=== PATIENT | female | born 1975 | race Caucasian/White ===

== ENCOUNTER → 2018-07-13 | Outpatient (CLI) | payer BC ==
--- NOTE | 2018-07-14 09:31 | MM ---
Reason for exam: screening (asymptomatic). Last mammogram was performed 2 years and 4 months ago. History: Family history of breast cancer in maternal grandmother at age 50. Physical Findings: A clinical breast exam by your physician is recommended on an annual basis and results should be correlated with mammographic findings. MG 3D Screening Mammo W/Cad Bilateral CC and MLO view(s) were taken. Prior study comparison: March 11, 2016, bilateral MG screening mammo w CAD. The breast tissue is extremely dense which could obscure a lesion on mammography. No significant changes when compared with prior studies. ASSESSMENT: Benign, BI-RAD 2 RECOMMENDATION: Routine screening mammogram of both breasts in 1 year.
== END | disposition home or self-care (01) ==
LOC: RADMAMWWP 07:04
PROVIDERS: ATTEND Physician Assistant Medical
DX: Z12.31 Encounter for screening mammogram for malignant neoplasm of breast (principal); Z80.3 Family history of malignant neoplasm of breast
CPT/HCPCS: 77063; 77067

== ENCOUNTER → 2019-10-21 | Outpatient (CLI) | payer BC ==
--- NOTE | 2019-10-22 15:06 | MM ---
Reason for exam: screening (asymptomatic). Last mammogram was performed 1 year and 3 months ago. History: Family history of breast cancer in maternal grandmother at age 50. Physical Findings: A clinical breast exam by your physician is recommended on an annual basis and results should be correlated with mammographic findings. MG 3D Screening Mammo W/Cad Bilateral CC and MLO view(s) were taken. Prior study comparison: July 13, 2018, bilateral MG 3d screening mammo w/cad. March 11, 2016, bilateral MG screening mammo w CAD. The breast tissue is heterogeneously dense. This may lower the sensitivity of mammography. No significant changes when compared with prior studies. ASSESSMENT: Benign, BI-RAD 2 RECOMMENDATION: Routine screening mammogram of both breasts in 1 year.
== END | disposition home or self-care (01) ==
LOC: RADMAMWWP 09:35
PROVIDERS: ATTEND Family Medicine
DX: Z12.31 Encounter for screening mammogram for malignant neoplasm of breast (principal); Z80.3 Family history of malignant neoplasm of breast
CPT/HCPCS: 77063; 77067

== ENCOUNTER → 2020-12-18 | Outpatient (CLI) | payer BC ==
--- NOTE | 2020-12-20 08:50 | MM ---
Reason for exam: screening (asymptomatic). Last mammogram was performed 1 year and 2 months ago. History: Family history of breast cancer in maternal grandmother at age 50. Physical Findings: A clinical breast exam by your physician is recommended on an annual basis and results should be correlated with mammographic findings. MG Screening Mammo w CAD Bilateral CC and MLO view(s) were taken. Prior study comparison: October 21, 2019, bilateral MG 3d screening mammo w/cad. July 13, 2018, bilateral MG 3d screening mammo w/cad. March 11, 2016, bilateral MG screening mammo w CAD. The breast tissue is extremely dense which could obscure a lesion on mammography. Lateral left microcalcifications appear increased. Lateral central right MLO asymmetric density appears more defined. ASSESSMENT: Incomplete: need additional imaging evaluation, BI-RAD 0 RECOMMENDATION: Special view mammogram of both breasts. (right spot views, left magnification views) If lesion persists on supplemental views, image directed ultrasound is recommended. [facility] will attempt to contact patient to return for supplemental views and ultrasound if indicated.
== END | disposition home or self-care (01) ==
LOC: RADMAMWWP 14:57
PROVIDERS: ATTEND Family Medicine
DX: Z12.31 Encounter for screening mammogram for malignant neoplasm of breast (principal); Z80.3 Family history of malignant neoplasm of breast
CPT/HCPCS: 77067

== ENCOUNTER → 2020-12-22 | Outpatient (CLI) | payer BC ==
--- NOTE | 2020-12-25 12:24 | MM ---
Reason for exam: additional evaluation requested from abnormal screening. Last mammogram was performed less than 1 month ago. History: Family history of breast cancer in maternal grandmother at age 50. Physical Findings: Nurse did not find any significant physical abnormalities on exam. MG Work Up Mamm w CAD BILAT MLO and LM view(s) were taken of the right breast. CC with magnification, ML with magnification, XCCM, and ML view(s) were taken of the left breast. Prior study comparison: December 18, 2020, bilateral MG screening mammo w CAD. October 21, 2019, bilateral MG 3d screening mammo w/cad. The breast tissue is heterogeneously dense. This may lower the sensitivity of mammography. Finding: There are intermediate concern, suspicious grouped/clustered, fine calcifications in the upper outer quadrant of the left breast 3cm from the nipple. There is no discrete abnormality including area of concern in the right breast. New finding since December 18, 2020 and October 21, 2019. These results were verbally communicated with the patient and result sheet given to the patient on 12/22/20. ASSESSMENT: Suspicious, BI-RAD 4 RECOMMENDATION: Stereotactic core biopsy of the left breast. (calcifications) Called Dr. Ceron's office with mammographic findings and has scheduled an appointment for the patient for 01/25/21 at 1:[address] Monroe. Biopsy scheduled for 01/26/21 at 8:00. PRELIMINARY REPORT CALLED AND FAXED TO DR. MONROE ON 12/25/20.
== END | disposition home or self-care (01) ==
LOC: RADMAMWWP 08:55
PROVIDERS: ATTEND Family Medicine
DX: R92.8 Other abnormal and inconclusive findings on diagnostic imaging of breast (principal); Z80.3 Family history of malignant neoplasm of breast
CPT/HCPCS: 77066

== ENCOUNTER → 2021-01-25 | Outpatient (CLI) | payer BC ==
[2021-01-25 13:12] VITALS: BP 132/75; PULSE 70; RESP 18; TEMP 98.2
--- NOTE | 2021-01-25 13:27 | P.GSHP ---
History of Present Illness H&P Date: 01/25/21 Chief Complaint: abnormal left breast mammogram Rina is a 45 year old white female seen in consultation for Dr. Ceron regarding a mammograpic abnormality in the left breast. Patient does not feel anything of concern in her breast. [place] [address]. Additional views were recommended of both breasts. [place] [id number]. No discrete abnormality was noted in the right breast however in the left breast intermediate concern suspicious group clustered fine calcifications in the upper quadrant were noted. She is not complaining of any nipple discharge or skin changes. She does not feel any lumps masses or nodules in other breast. She has not had any surgery on either breast. caffeine: 5 cups/day nicotine: none stopped at 25, used to smoke 1 pack every other day started at 18 chocolate: occasional Family History: maternal grandmother: of breast cancer father: lung cancer/smoker Hormonal History: menarche: 11 breast fed: yes, age at first : 25 periods irregular and heavy hormones: none BCP: used 8 years stopped at 23 Surgical history: laperoscopy for to valuate for endometriosis Medical history: none Social history: Nicotine: Negative, former smoker stopped approximately 20 years ago Alcohol: 3 days/week wine drugs: Marijuana / weekends - Constitutional Constitutional: Reports sweats - EENT Eyes: bilateral blurred vision, denies pain Ears: bilateral: decreased hearing (follows with ENT), deny: tinnitus Ears, nose, mouth and throat: Denies headache, Denies sore throat - Breasts Breasts: bilateral: as per HPI - Cardiovascular Cardiovascular: Denies chest pain, Denies shortness of breath - Respiratory Comment: former smoker Respiratory: Denies cough, Denies 7 - Gastrointestinal Gastrointestinal: Denies abdominal pain, Denies diarrhea, Denies nausea, Denies vomiting - Genitourinary (Female) Genitourinary: Denies dysuria, Denies hematuria - Menstruation Menstruation: Reports cycle variable - Musculoskeletal Musculoskeletal: Denies myalgias - Integumentary Integumentary: Denies pruritus, Denies rash - Neurological Neurological: Denies numbness, Denies weakness - Psychiatric Psychiatric: Reports anxiety, Denies depression - Endocrine Endocrine: Reports fatigue, Denies weight change - Hematologic/Lymphatic Comment: none - Allergic/Immunologic Allergic/Immunologic: Reports as per HPI, Reports seasonal allergies Medications and Allergies Home Medications Medication Instructions Recorded Confirmed Type ALPRAZolam [Xanax] 0.5 mg PO HS PRN 01/15/21 01/15/21 History Allergies Allergy/AdvReac Type Severity Reaction Status Date / Time sulfamethoxazole AdvReac Intermediate Vomiting Verified 01/15/21 12:29 [From Bactrim] trimethoprim [From Bactrim] AdvReac Intermediate Vomiting Verified 01/15/21 12:29 Surgical - Exam BMI 20.5 - General no distress - Eyes normal ocular movement - ENT normal nares - Neck trachea midline - Respiratory normal respiratory effort, clear to auscultation - Cardiovascular Rhythm: regular Heart Sounds: normal: S1, S2 - Abdomen Abdomen: soft - Integumentary normal turgor - Neurologic no disoriented, no combative - Musculoskeletal normal gait - Psychiatric oriented to time, oriented to person, oriented to place, speech is normal, memory intact Breast Exam: BRA: 32B inspection: Bilateral grade 1/2 ptosis Palpation: Right breast: Fibrocystic breast changes/dense breasts no dominant masses or nodules of concern Right axilla: Shoddy adenopathy Left breast: His multiple positional exam fibrocystic changes dense fibroglandular tissue no dominant masses or nodules of concern Left axilla: Shoddy adenopathy Results Mammogram reviewed with Dr. Vaughn Assessment and Plan Assessment: Impression: 1. Fibrocystic breast changes 2. Family history of breast cancer 3. Mammographic abnormality left breast Plan: 1. Attempted stereo biopsy left breast, the patient's breast are small and the microcalcifications are somewhat difficult to say Risks and benefits of the procedure discussed with the patient. Risks include but are not limited to bleeding, infection, reaction to the anesthetic. If the area of concern is not well visualized tomorrow we may recommend needle localization and excision in the operating room. CC: Dr. Ceron
== END ==
LOC: WWCWWP 12:58
PROVIDERS: ATTEND Surgery
DX: N60.12 Diffuse cystic mastopathy of left breast (principal); Z80.3 Family history of malignant neoplasm of breast; Z87.891 Personal history of nicotine dependence; Z88.2 Allergy status to sulfonamides

== ENCOUNTER → 2021-01-26 | Day surgery (SDC) | payer BC ==
[2021-01-26 07:36] VITALS: RESP 18
[2021-01-26 09:30] VITALS: BP 130/77; PULSE 60; TEMP 97.7
--- NOTE | 2021-01-26 09:59 | P.PCN ---
Date of Procedure: 01/26/21 Preoperative Diagnosis: Microcalcifications of concern right breast Postoperative Diagnosis: Same Procedure(s) Performed: right Breast stereotactic core biopsy Anesthesia: local Surgeon: Amy Monroe Pathology: other (Breast tissue/several small microcalcifications felt to be present in biopsy specimen) Condition: stable Disposition: same day Indications for Procedure: Suspicious group/clustered fine calcifications upper outer quadrant left breast Operative Findings: Radiographic specimen reveals few scattered calcifications Description of Procedure: The patient is a 45-year-old white female who was noted to have microcalcifications of concern in the right breast in the upper quadrant region. She has small breast, the microcalcifications are very fine and she has very dense breast making it difficult to see. The radiographs were reviewed with radiology and it was felt that we would attempt a CC from above approach to do stereotactic core biopsy. Secondary to the nature of the calcifications and the size of the breast I discussed with the patient that we may not be technically able to accomplish the biopsy. Alternatives would be watchful waiting or going to the operating room however at this time she wished an attempt at stereotactic core biopsy. The patient was taken to stereotactic core biopsy room. She was positioned on the low rad table. A CC from above approach was utilized. A industrial hygenist film was obtained. The industrial hygenist film revealed some very fine calcifications. These appeared to be consistent with those seen mammographically and felt to be suspicious. The calcifications were targeted. The breast was prepped using a Betadine prep. 20 mL of 1% lidocaine were used to anesthetize the area of concern. A petite needle 9-gauge vacuum-assisted core rotating biopsy needle was introduced into the area of concern. Prefire film was obtained. The needle was fired and a post-fire film was obtained. Multiple core biopsies were obtained. Radiograph of the specimen revealed what appeared to be some faint scattered calcifications. The secure valentin top mechatronics technologist was placed. Postprocedure mammogram was performed to determine clip placement. There was concern that although it was believed calcifications had been sampled the most suspicious calcifications had not been adequately sampled. This was reviewed with Dr. Lino from radiology. We will await pathology results. We will most likely recommend repeat sampling.
--- NOTE | 2021-01-26 11:14 | MM ---
Description of Procedure: The patient is a 45-year-old white female who was noted to have microcalcifications of concern in the right breast in the upper quadrant region. She has small breast, the microcalcifications are very fine and she has very dense breast making it difficult to see. The radiographs were reviewed with radiology and it was felt that we would attempt a CC from above approach to do stereotactic core biopsy. Secondary to the nature of the calcifications and the size of the breast I discussed with the patient that we may not be technically able to accomplish the biopsy. Alternatives would be watchful waiting or going to the operating room however at this time she wished an attempt at stereotactic core biopsy. The patient was taken to stereotactic core biopsy room. She was positioned on the low rad table. A CC from above approach was utilized. A retail support manager film was obtained. The retail support manager film revealed some very fine calcifications. These appeared to be consistent with those seen mammographically and felt to be suspicious. The calcifications were targeted. The breast was prepped using a Betadine prep. 20 mL of 1% lidocaine were used to anesthetize the area of concern. A petite needle 9-gauge vacuum-assisted core rotating biopsy needle was introduced into the area of concern. Prefire film was obtained. The needle was fired and a post-fire film was obtained. Multiple core biopsies were obtained. Radiograph of the specimen revealed what appeared to be some faint scattered calcifications. The secure valentin top hat and cap opener was placed. Postprocedure mammogram was performed to determine clip placement. There was concern that although it was believed calcifications had been sampled the most suspicious calcifications had not been adequately sampled. This was reviewed with Dr. Lino from radiology. We will await pathology results. We will most likely recommend repeat sampling. [facility] HOSPITALValeriy
== END ==
LOC: RADMAMWWP 07:08
PROVIDERS: ATTEND Surgery
DX: N60.12 Diffuse cystic mastopathy of left breast (principal); N60.82 Other benign mammary dysplasias of left breast; R92.8 Other abnormal and inconclusive findings on diagnostic imaging of breast; Z88.2 Allergy status to sulfonamides
CPT/HCPCS: 88305; 19081; J2001

== ENCOUNTER → 2021-02-02 | Outpatient (CLI) | payer BC ==
--- NOTE | 2021-02-02 14:04 | P.PN ---
Subjective Progress Note Date: 02/02/21 Principal diagnosis: Abnormal left breast mammogram Patient is a 45-year-old white female status post attempted stereotactic core biopsy of an area of microcalcification in the left breast on . Pathology was benign fibrocystic change. No calcifications were seen in the pathology specimen. The lesion of concern appears to be slightly posterior to the location of the localizing clip. The patient did develop some ecchymosis and discomfort following the procedure. Her breast size is A. Objective - Vital Signs Vital signs: Intake & Output 02/01/21 02/02/21 02/02/21 18:59 06:59 18:59 Weight 58.967 kg - Additional findings Additional findings: Left breast biopsy; ecchymosis resolving no evidence of infection, no evidence of hematoma Assessment and Plan Assessment: Impression: Attempted stereotactic core biopsy area of calcification in the left breast/the most suspicious calcifications are not felt to have been adequately sampled Plan: We have talked about several options these would include 1. Repeat attempted stereo biopsy 2. Stereo biopsy with 3-D equipment 3. Needle localization and excisional biopsy 4. Watchful waiting After discussion the best course of action seems to be stereo biopsy with 3-D equipment the understanding that if this is not possible then needle localizatio n and excision in the OR most likely be recommended. CC: Dr. Ceron
[2021-02-02 14:06] VITALS: BP 143/88; PULSE 82; RESP 16; TEMP 98
== END ==
LOC: WWCWWP 12:58
PROVIDERS: ATTEND Surgery
DX: R92.1 Mammographic calcification found on diagnostic imaging of breast (principal); Z88.1 Allergy status to other antibiotic agents; Z88.2 Allergy status to sulfonamides

== ENCOUNTER → 2021-05-28 | Outpatient (CLI) | payer BC ==
--- NOTE | 2021-05-28 14:51 | MM ---
Reason for exam: follow-up at short interval from prior study. Last mammogram was performed 5 months ago. History: Family history of breast cancer in maternal grandmother at age 50. Benign MG stereo VAD BX LT of the left breast, January 26, 2021. Physical Findings: A clinical breast exam by your physician is recommended on an annual basis and results should be correlated with mammographic findings. MG 3D Diag Mammo W/Cad LT CC and MLO view(s) were taken of the left breast. Prior study comparison: December 22, 2020, bilateral MG work up mamm w CAD BILAT. December 18, 2020, bilateral MG screening mammo w CAD. There are scattered fibroglandular densities. Finding: There are typically benign diffuse/scattered calcifications in the left breast. No significant changes in finding since December 22, 2020 and December 18, 2020. These results were verbally communicated with the patient and result sheet given to the patient on 05/28/21. ASSESSMENT: Benign, BI-RAD 2 RECOMMENDATION: Return to routine screening mammogram schedule for both breasts. Back on schedule.
== END | disposition home or self-care (01) ==
LOC: RADMAMWWP 13:43
PROVIDERS: ATTEND Surgery
DX: R92.1 Mammographic calcification found on diagnostic imaging of breast (principal); N64.89 Other specified disorders of breast; Z80.3 Family history of malignant neoplasm of breast
CPT/HCPCS: 77061; 77065

== ENCOUNTER → 2021-06-15 | Outpatient (CLI) | payer BC ==
[2021-06-15 11:25] VITALS: BP 128/88; PULSE 61; RESP 17; TEMP 98.3
--- NOTE | 2021-06-15 12:20 | P.PN ---
Subjective Progress Note Date: 06/15/21 Principal diagnosis: Fibrocystic breast changes Rina is a 45 year old white female seen in consultation for Dr. Ceron regarding a mammograpic abnormality in the left breast. Patient does not feel anything of concern in her breast. [place] [address]. Additional views were recommended of both breasts. [place] [address]. No discrete abnormality was noted in the right breast however in the left breast intermediate concern suspicious group clustered fine calcifications in the upper quadrant were noted. She is not complaining of any nipple discharge or skin changes. She does not feel any lumps masses or nodules in other breast. She had an attempt at a left breast serotactic core biopsy performed on . There was some question there may be some calcifications in the specimen and pathology was awaited. Pathology returned as fibrocystic changes but no calcifications were noted in the specimen. At that time we considered repeating the biopsy versus watchful waiting. After discussion with radiology and the patient the patient decided on the watchful waiting. A repeat mammogram of the left breast was performed on 3721. This was felt to have benign diffuse/scattered calcifications in the left breast. No significant changes since 12/18/2020. The recommendation was for repeat bilateral mammogram in December 2021 on schedule. The patient has not noted any new lumps masses or nodules of concern in either breast. Again had a discussion with the patient that I cannot promise that the initial calcifications were adequately sampled however everything appears stable and the patient has declined further interventional biopsy at this time. caffeine: 5 cups/day nicotine: none stopped at 25, used to smoke 1 pack every other day started at 18 chocolate: occasional Family History: maternal grandmother: of breast cancer father: lung cancer/smoker Hormonal History: menarche: 11 breast fed: yes, age at first : 25 periods irregular and heavy hormones: none BCP: used 8 years stopped at 23 Surgical history: laperoscopy for to evaluate for endometriosis Medical history: none Social history: Nicotine: Negative, former smoker stopped approximately 20 years ago Alcohol: 3 days/week wine drugs: Marijuana / weekends - Constitutional Constitutional: Reports sweats - EENT Eyes: bilateral blurred vision, denies pain Ears: bilateral: decreased hearing (follows with ENT), deny: tinnitus Ears, nose, mouth and throat: Denies headache, Denies sore throat - Breasts Breasts: bilateral: as per HPI - Cardiovascular Cardiovascular: Denies chest pain, Denies shortness of breath - Respiratory Comment: former smoker Respiratory: Denies cough - Gastrointestinal Gastrointestinal: Denies abdominal pain, Denies diarrhea, Denies nausea, Denies vomiting - Genitourinary (Female) Genitourinary: Denies dysuria, Denies hematuria - Menstruation Menstruation: Reports cycle variable - Musculoskeletal Musculoskeletal: Denies myalgias - Integumentary Integumentary: Denies pruritus, Denies rash - Neurological Neurological: Denies numbness, Denies weakness - Psychiatric Psychiatric: Reports anxiety, Denies depression - Endocrine Endocrine: Reports fatigue, Denies weight change - Hematologic/Lymphatic Comment: none - Allergic/Immunologic Allergic/Immunologic: Reports as per HPI, Reports seasonal allergies Objective - Vital Signs Vital signs: Vital Signs Temp 98.3 F 06/15/21 11:21 Pulse 61 06/15/21 11:21 Resp 17 06/15/21 11:21 BP 128/88 06/15/21 11:21 Pulse Ox 96 06/15/21 11:21 Intake & Output 06/14/21 06/15/21 06/15/21 18:59 06:59 18:59 Weight 58.967 kg - Exam BMI: 21 - EENT Eyes: Present: EOMI ENT: Present: hearing grossly normal - Neck Neck: Present: normal ROM - Respiratory Respiratory: bilateral: CTA - Cardiovascular Rhythm: regular Heart sounds: normal: S1, S2 - Integumentary Integumentary: Present: normal turgor - Musculoskeletal Musculoskeletal: Present: gait normal - Psychiatric Psychiatric: Present: A&O x's 3, appropriate affect, intact judgment & insight - Additional findings Additional findings: Breast examination: BRA: 32B inspection: Bilateral grade 1/2 ptosis Palpation: Right breast: Fibrocystic breast changes/dense breasts no dominant masses or nodules of concern Right axilla: No adenopathy of concern Left breast: Multiple positional exam fibrocystic changes stents hyperglandular tissue no dominant masses or nodules of concern Left axilla: Shoddy adenopathy Assessment and Plan Assessment: Impression: Fibrocystic breast changes Family history of breast cancer Mammographic abnormality stable left breast Plan: Bilateral mammogram in December 2021 with physician exam at that time If patient notes any this will see her sooner It should be noted an attempted serotactic core biopsy of an area of microcalcifications was performed in the left breast on . There was some question as to whether the area was adequately sampled. Additional biopsy at that time was discussed with the patient which she declined and watchful waiting was performed. The most recent repeat mammogram on 372 appears stable and again the patient has declined any interventional additional biopsy at this time. Cc: Dr. Ceron
== END ==
LOC: WWCWWP 11:14
PROVIDERS: ATTEND Surgery
DX: N60.11 Diffuse cystic mastopathy of right breast (principal); N60.12 Diffuse cystic mastopathy of left breast; Z80.3 Family history of malignant neoplasm of breast; Z87.891 Personal history of nicotine dependence; Z88.2 Allergy status to sulfonamides

== ENCOUNTER → 2021-12-24 | Outpatient (CLI) | payer BC ==
--- NOTE | 2021-12-24 14:45 | MM ---
Reason for Exam: Additional evaluation requested from abnormal screening. Last mammogram was performed 1 year(s) and 1 month(s) ago. Patient History: Menarche at age 13. First Full-Term at age 28. Late child-bearing (after 28). 01/26/2021, Benign Core Biopsy on the left side. Maternal grandmother had breast cancer, age 50. Last menstrual period: 12/24/2021 Risk Values: Paty 5 year model risk: 1.5%. NCI Lifetime model risk: 13.5%. Prior Study Comparison: 12/18/2020 Bilateral Screening Mammogram, [facility]. 12/22/2020 Bilateral Diagnostic Mammogram, [facility]. 05/28/2021 Left Diagnostic Mammogram, [facility]. Tissue Density: The breast tissue is heterogeneously dense. This may lower the sensitivity of mammography. Findings: Analyzed By CAD. No suspicious masses, calcifications or distortions. Left biopsy clip. Overall Assessment: Negative, BI-RAD 1 Management: Screening Mammogram of both breasts in 1 year. A clinical breast exam by your physician is recommended on an annual basis and results should be correlated with mammographic findings. This exam should not preclude additional follow-up of suspicious palpable abnormalities. Results were given to the patient verbally at the time of exam. Electronically signed and approved by: Eduardo Watson DO
== END | disposition home or self-care (01) ==
LOC: RADMAMWWP 14:08
PROVIDERS: ATTEND Surgery
DX: R92.8 Other abnormal and inconclusive findings on diagnostic imaging of breast (principal); Z80.3 Family history of malignant neoplasm of breast
CPT/HCPCS: 77066

== ENCOUNTER → 2022-01-04 | Outpatient (CLI) | payer BC ==
[2022-01-04 09:38] VITALS: BP 129/86; PULSE 62; RESP 16; TEMP 98
--- NOTE | 2022-01-04 10:15 | P.PN ---
Subjective Progress Note Date: 01/04/22 Principal diagnosis: Fibrocystic breast changes/radiographic microcalcifications of concern noted in left breast Fibrocystic breast changes Rina is a 45 year old white female seen in consultation for Dr. Ceron regarding a mammograpic abnormality in the left breast. Patient does not feel anything of concern in her breast. [place] [address]. Additional views were recommended of both breasts. [place] [address]. No discrete abnormality was noted in the right breast however in the left breast intermediate concern suspicious group clustered fine calcifications in the upper quadrant were noted. She is not complaining of any nipple discharge or skin changes. She does not feel any lumps masses or nodules in other breast. She had an attempt at a left breast serotactic core biopsy performed on . There was some question there may be some calcifications in the specimen and pathology was awaited. Pathology returned as fibrocystic changes but no calcifications were noted in the specimen. At that time we considered repeating the biopsy versus watchful waiting. After discussion with radiology and the patient the patient decided on the watchful waiting. A repeat mammogram of the left breast was performed on 3721. This was felt to have benign diffuse/scattered calcifications in the left breast. No significant changes since 12/18/2020. The recommendation was for repeat bilateral mammogram in December 2021 on schedule. The patient has not noted any new lumps masses or nodules of concern in either breast. Again had a discussion with the patient that I cannot promise that the initial calcifications were adequately sampled however everything appears stable and the patient has declined further interventional biopsy at this time. At this time the patient does not note any changes in her breast of concern. A bilateral mammogram was done on 12-24-21 which was BIRAD 1. The mammogram however was reviewed with Dr. Lino and the patient had had an attempt at a stereo biopsy approximately a year ago. In area of calcification which had been targeted a year ago was questionably sampled. After review with Dr. Lino he has recommended a stereo biopsy again be attempted of the area of concern. caffeine: 5 cups/day nicotine: none stopped at 25, used to smoke 1 pack every other day started at 18 chocolate: occasional Family History: maternal grandmother: of breast cancer father: lung cancer/smoker Hormonal History: menarche: 11 breast fed: yes, age at first : 25 periods irregular and heavy hormones: none BCP: used 8 years stopped at 23 Surgical history: laperoscopy for to evaluate for endometriosis Medical history: none Social history: Nicotine: Negative, former smoker stopped approximately 20 years ago Alcohol: 3 days/week wine drugs: Marijuana / weekends - Constitutional Constitutional: Reports sweats - EENT Eyes: bilateral blurred vision, denies pain Ears: bilateral: decreased hearing (follows with ENT), deny: tinnitus Ears, nose, mouth and throat: Denies headache, Denies sore throat - Breasts Breasts: bilateral: as per HPI - Cardiovascular Cardiovascular: Denies chest pain, Denies shortness of breath - Respiratory Comment: former smoker Respiratory: Denies cough - Gastrointestinal Gastrointestinal: Denies abdominal pain, Denies diarrhea, Denies nausea, Denies vomiting - Genitourinary (Female) Genitourinary: Denies dysuria, Denies hematuria - Menstruation Menstruation: Reports cycle variable - Musculoskeletal Musculoskeletal: Denies myalgias - Integumentary Integumentary: Denies pruritus, Denies rash - Neurological Neurological: Denies numbness, Denies weakness - Psychiatric Psychiatric: Reports anxiety, Denies depression - Endocrine Endocrine: Reports fatigue, Denies weight change - Hematologic/Lymphatic Comment: none - Allergic/Immunologic Allergic/Immunologic: Reports as per HPI, Reports seasonal allergies Objective - Vital Signs Vital signs: Vital Signs Temp 98.0 F 01/04/22 09:35 Pulse 62 01/04/22 09:35 Resp 16 01/04/22 09:35 BP 129/86 01/04/22 09:35 Pulse Ox 99 01/04/22 09:35 FiO2 Intake & Output 01/03/22 01/04/22 01/04/22 18:59 06:59 18:59 Weight 58.967 kg - Constitutional General appearance: Present: cooperative - EENT Eyes: Present: EOMI ENT: Present: hearing grossly normal - Neck Neck: Present: normal ROM - Respiratory Respiratory: bilateral: CTA - Cardiovascular Rhythm: regular Heart sounds: normal: S1, S2 - Gastrointestinal General gastrointestinal: Present: soft - Integumentary Integumentary: Present: normal turgor - Musculoskeletal Musculoskeletal: Present: gait normal - Psychiatric Psychiatric: Present: A&O x's 3, appropriate affect, intact judgment & insight - Additional findings Additional findings: Breast examination: BRA: 32B inspection: Bilateral grade 1/2 ptosis Palpation: Right breast: Fibrocystic breast changes/dense breasts no dominant masses or nodules of concern Right axilla: No adenopathy of concern Left breast: Multiple positional exam fibrocystic changes stents hyperglandular tissue no dominant masses or nodules of concern Left axilla: Shoddy adenopathy Assessment and Plan Assessment: Impression: Fibrocystic breast changes bilateral Microcalcifications of concern attempted to be stereotactically biopsied approximately a year ago, there was question of the area was adequately sampled. The radiograph is personally reviewed with Dr. Lino who felt we should again attempted stereo biopsy of the area of microcalcifications in the left breast. Plan: Stereotactic core biopsy left breast area of microcalcifications to be performed by radiology Patient to follow up with me after stereotactic core biopsy Skin benefits of the procedure discussed with the patient. Risks include but are not limited to bleeding, infection, reaction to the anesthetic. She understands that if the lesion is discordant or unable to be seen well on the table that needle localization excisional biopsy the operating room may be recommended. Again this case was specifically reviewed with Dr. Lino and we have requested the Dr. Lino be the radiologist to be present at the biopsy. Cc: Oma Guan
== END ==
LOC: WWCWWP 09:21
PROVIDERS: ATTEND Surgery
DX: R92.8 Other abnormal and inconclusive findings on diagnostic imaging of breast (principal); N60.11 Diffuse cystic mastopathy of right breast; N60.12 Diffuse cystic mastopathy of left breast; R92.0 Mammographic microcalcification found on diagnostic imaging of breast; F41.9 Anxiety disorder, unspecified; Z87.891 Personal history of nicotine dependence

== ENCOUNTER → 2022-03-07 | Day surgery (SDC) | payer BC ==
--- NOTE | 2022-03-11 15:05 | MM ---
Risk Values: Paty 5 year model risk: 1.5%. NCI Lifetime model risk: 13.5%. Prior Study Comparison: 12/22/2020 Bilateral Diagnostic Mammogram, [facility]. 05/28/2021 Left Diagnostic Mammogram, [facility]. 12/24/2021 Bilateral MG diagnostic mammo w CAD SANYA, [facility]. Pathology Description: Marker Left Behind. Specimen Radiograph. Approach: Lateral to Medial Needle Type: Eviva Cores: 7 Skin Nicks: 1 Gauge: 9 The procedure of stereotactic guided core biopsy was explained to the patient. Benefits, alternatives, and risks were discussed. An informed consent was then obtained. Timeout was performed. The shortness pathway for biopsy was chosen. Shortness pathway was lateral approach. Radiology performed the localization procedure. A vacuum assisted biopsy gun was used to obtain 7 core samples. The patient tolerated the procedure well without any immediate complication. The patient was kept in the radiology department for short stay after the procedure and then discharged home in stable condition. Specimen: Targeted calcifications are identified in specimen mammogram. Post biopsy mammogram shows the clip to appear in satisfactory position relative to the targeted area of concern on the preprocedure images. Impression: 1. Successful stereotactic core biopsy left breast. Pathology Results: Result: Benign, Fibrocystic change. LEFT BREAST, STEREOTACTIC CORE BIOPSY: Fibrosis with fibrocystic change having columnar cell change and microcalcification. Overall Assessment: Benign Management: Diagnostic Mammogram of the left breast in 6 months. Electronically signed and approved by: Nathanael Lino D.O. Radiologis
== END ==
LOC: RADMAMWWP 09:59
PROVIDERS: ATTEND Surgery
DX: N60.12 Diffuse cystic mastopathy of left breast (principal)
CPT/HCPCS: 88305; 19081; A4648

== ENCOUNTER → 2023-07-15 | Outpatient (CLI) | payer BC ==
--- NOTE | 2023-07-17 12:48 | MM ---
Reason for Exam: Screening (asymptomatic). Last mammogram was performed 1 year(s) and 6 month(s) ago. Patient History: Menarche at age 13. First Full-Term at age 28. Late child-bearing (after 28). Perimenopausal. 03/07/2022, Benign MG stereo VAD BX LT on the left side. 01/26/2021, Benign Core Biopsy on the left side. Maternal grandmother had breast cancer, age 50. Risk Values: Paty 5 year model risk: 2.0%. NCI Lifetime model risk: 16.7%. Prior Study Comparison: 12/22/2020 Bilateral Diagnostic Mammogram, [facility]. 05/28/2021 Left Diagnostic Mammogram, [facility]. 12/24/2021 Bilateral MG diagnostic mammo w CAD SANYA, [facility]. Tissue Density: The breasts are heterogeneously dense, which may obscure small masses. Findings: Analyzed By CAD. There is no suspicious group of microcalcifications or new suspicious mass in either breast. Overall Assessment: Benign, BI-RAD 2 Management: Screening Mammogram of both breasts in 1 year. . Patient should continue monthly self-breast exams. A clinical breast exam by your physician is recommended on an annual basis. This exam should not preclude additional follow-up of suspicious palpable abnormalities. Note on Paty scores and lifetime risk: 1. A Paty score greater than 3% is considered moderate risk. If this is the case, consider specialist referral to assess eligibility for a risk reducing agent. 2. If overall lifetime risk for the development of breast cancer is 20% or higher, the patient may qualify for future screening with alternating mammogram and breast MRI. Electronically signed and approved by: Rogelio Pedro M.D. Radiologis
== END | disposition home or self-care (01) ==
LOC: RADMAMWWP 07:14
PROVIDERS: ATTEND Family Medicine
DX: Z12.31 Encounter for screening mammogram for malignant neoplasm of breast (principal); Z80.3 Family history of malignant neoplasm of breast
CPT/HCPCS: 77063; 77067

== ENCOUNTER 2023-08-06 08:11 | Day surgery (SDC) | payer BC ==
[2023-07-31 12:10] VITALS: BMI 20.3
[~2023-08-06 08:11] MED LIST: LACTATED RINGERS 1,000 ML IV SCH
[2023-08-06] MEDS: LACTATED RINGERS 1,000 ML IV ONE ×2 (08:25→09:21)
[2023-08-06 08:58] VITALS: TEMP 97.5
[2023-08-06] MEDS ORDERED: PROPOFOL 10 MG/ML 20 ML VIAL IV ONE (09:22)
[2023-08-06] MEDS ORDERED: GLYCOPYRROLATE 0.2 MG/ML 2 ML VIAL ONE (09:22)
[2023-08-06] MEDS ORDERED: ONDANSETRON 4 MG/2 ML VIAL ONE ×2 (09:22→10:38)
[2023-08-06] MEDS ORDERED: MIDAZOLAM 2 MG/2 ML VIAL ONE (09:22)
--- NOTE | 2023-08-06 09:28 | P.GSHP ---
History of Present Illness H&P Date: 08/06/23 CHIEF COMPLAINT: Colon screen HISTORY OF PRESENT ILLNESS: The patient is a 47-year-old female who presents for first colon screen. Lower endoscopy was offered for further evaluation and management. PAST MEDICAL HISTORY: Please see list. PAST SURGICAL HISTORY: Please see list. MEDICATIONS: Please see list. ALLERGIES: Please see list. SOCIAL HISTORY: No illicit drug use FAMILY HISTORY: No reports of Crohn disease or ulcerative colitis. REVIEW OF ORGAN SYSTEMS: CONSTITUTIONAL: No reports of fevers or chills. PHYSICAL EXAM: VITAL SIGNS: Stable GENERAL: Well-developed pleasant in no acute distress. HEENT: No scleral icterus. Extraocular movements grossly intact. Moist buccal mucosa. NECK: Supple without lymphadenopathy. CHEST: Unlabored respirations. Equal bilateral excursions. CARDIOVASCULAR: Regular rate and rhythm. Distal 2+ pulses. ABDOMEN: Soft, nontender, nondistended. MUSCULOSKELETAL: No clubbing, cyanosis, or edema. ASSESSMENT: 1. Colon screen, First PLAN: 1. Recommend proceeding with a lower endoscopy Past Medical History Past Medical History: No Reported History History of Any Multi-Drug Resistant Organisms: None Reported Additional Past Surgical History / Comment(s): laproscopy for ovaries. left breast stereo core 2020-benign Past Anesthesia/Blood Transfusion Reactions: No Reported Reaction Additional Past Anesthesia/Blood Transfusion Reaction / Comment(s): no blood transfusion Smoking Status: Former smoker Medications and Allergies Home Medications Medication Instructions Recorded Confirmed Type ALPRAZolam [Xanax] 0.5 mg PO DAILY PRN 01/15/21 08/06/23 History Melatonin [Melatonin ER] 10 mg PO HS 02/02/21 08/06/23 History Multivitamins, Thera [Multivitamin 1 tab PO DAILY 02/02/21 08/06/23 History (formulary)] Vitamin B Complex 1 tab PO DAILY 02/02/21 08/06/23 History Allergies Allergy/AdvReac Type Severity Reaction Status Date / Time sulfamethoxazole AdvReac Intermediate Vomiting Verified 08/06/23 08:39 [From Bactrim] trimethoprim [From Bactrim] AdvReac Intermediate Vomiting Verified 08/06/23 08:39 Surgical - Exam Vital Signs Temp Pulse Resp BP Pulse Ox 97.5 F L 71 15 148/80 97 08/06/23 08:25 08/06/23 08:25 08/06/23 08:25 08/06/23 08:25 08/06/23 08:25
--- NOTE | 2023-08-06 10:11 | P.PCN ---
Date of Procedure: 08/06/23 Description of Procedure: PREOPERATIVE DIAGNOSIS: Colonoscopy screening, first POSTOPERATIVE DIAGNOSIS: Tubular adenoma transverse colon Colon polyp, rectum OPERATION: Colonoscopy to the ileocecal valve and appendiceal orifice, cecum Colonoscopy with hot snare polypectomy, transverse colon Colonoscopy with cold forceps biopsy, rectum SURGEON: More Rangel MD. ANESTHESIA: MAC. INDICATIONS: The patient is an 47-year-old male who presents for her first colonoscopy. Benefits and risks were described and informed consent was obtained. DESCRIPTION OF PROCEDURE: The patient had undergone Sutab prep. The patient had been brought into the operating room and laid in the left lateral decubitus position. After adequate intravenous sedation, the rectum was examined with 2% lidocaine jelly. No external hemorrhoids were encountered. The rectal tone was within normal limits. No lesions were palpated in the rectal vault. An Olympus colonoscope was advanced until the cecum, ileocecal valve and appendiceal orifice were clearly viewed. The prep was excellent. The colon was highly redundant with difficult maneuvering. Colonic polyps were found and removed. No evidence of focal colitis was found. Retroflexion of the scope demonstrated grade 2 internal hemorrhoids without active bleeding or inflammation. The colon was desufflated. The patient had tolerated the procedure well. Withdrawal time was over 6 minutes. FINDINGS: Aronchick preparation quality scale 1 (1-5) Internal hemorrhoids, grade 1 External hemorrhoids, grade 1. No arteriovenous malformations. No sigmoid diverticulosis Removal of 2 polyps: - Snare polypectomy proximal transverse colon, 5 mm tubulovillous adenoma - Cold forceps biopsy at rectum, 3 mm polyp. No focal colitis. RECOMMENDATIONS: Repeat colonoscopy 3 years, 2026 Plan - Discharge Summary Discharge Rx Participant: No New Discharge Prescriptions: Continue ALPRAZolam [Xanax] 0.5 mg PO DAILY PRN PRN Reason: Mild Anxiety Vitamin B Complex 1 tab PO DAILY Multivitamins, Thera [Multivitamin (formulary)] 1 tab PO DAILY Melatonin [Melatonin ER] 10 mg PO HS Discharge Medication List ALPRAZolam [Xanax] 0.5 mg PO DAILY PRN 01/15/21 [History] Melatonin [Melatonin ER] 10 mg PO HS 02/02/21 [History] Multivitamins, Thera [Multivitamin (formulary)] 1 tab PO DAILY 02/02/21 [History] Vitamin B Complex 1 tab PO DAILY 02/02/21 [History] Follow up Appointment(s)/Referral(s): More Rangel MD [STAFF PHYSICIAN] - 08/26/23 4:00 pm Patient Instructions/Handouts: Colorectal Polyps (GEN) Activity/Diet/Wound Care/Special Instructions: Repeat colonoscopy 3 years, 2026 Discharge Disposition: HOME SELF-CARE
[2023-08-06] MEDS ORDERED: KETOROLAC 15 MG/ML 1 ML VIAL ONE (10:42)
[2023-08-06] MEDS: ONDANSETRON 4 MG/2 ML VIAL IVP ONE (10:43)
[2023-08-06] MEDS: KETOROLAC 15 MG/ML 1 ML VIAL IVP ONE (10:44)
[2023-08-06] MEDS ORDERED: KETOROLAC 15 MG/ML 1 ML VIAL IVP STA (10:46)
[2023-08-06] MEDS ORDERED: SODIUM CHLORIDE 0.9% 1,000 ML IV ONE (10:46)
[2023-08-06 10:53] VITALS: RESP 18
--- NOTE | 2023-08-06 11:11 | P.PN ---
Progress Note - Text Progress Note Date: 08/06/23 Patient reports pre-existing severe menstrual cramps. Normal saline bolus including Toradol ordered.
[2023-08-06 11:51] VITALS: BP 138/86; PULSE 68
== END 2023-08-06 11:52 | disposition home or self-care (01) ==
LOC: ORWHC2ENDO 08:11
PROVIDERS: ATTEND Surgery Plastic and Reconstructive Surgery
DX: Z12.11 Encounter for screening for malignant neoplasm of colon (principal); K63.5 Polyp of colon; K64.1 Second degree hemorrhoids; Z88.2 Allergy status to sulfonamides; Z88.1 Allergy status to other antibiotic agents; Z87.891 Personal history of nicotine dependence; Z79.899 Other long term (current) drug therapy
CPT/HCPCS: 81025; 88305; 45380; 45385; J2250; J2405; J1885; J2704